=== PATIENT | male | born 1990 | race Caucasian/White ===

== ENCOUNTER 2021-03-18 17:09 | Emergency (ER) | payer OTHER, SELFPAY ==
[2021-03-18 17:25] VITALS: BP 142/80; PULSE 80; RESP 18; TEMP 36.3; O2SAT 98
--- NOTE | 2021-03-18 18:07 | ED.DIZZY ---
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 Patient denies any problems with sinus drainage, sinus pressure, headaches, visual disturbances or any chest pain, pressure or any palpitations. Patient denies feeling like he is going to pass out, states that he has no dizziness with changes of position or any dizziness if he moves his head quickly. Patient states that he walks a lot at work denies any exercise program outside of work. Patient states that he drinks a lot of water daily so does not feel it could be related to dehydration. MD elicited complaint: dizziness and lightheadedness Related Data Home Medications Medication Instructions Recorded Confirmed No Home Medications 03/18/21 03/18/21 Allergies Allergy/AdvReac Type Severity Reaction Status Date / Time No Known Allergies Allergy Unknown Unverified 03/18/21 17:24 Review of Systems Review of Systems: Narrative: CONSTITUTIONAL: Denies fever, chills, or sweats. EYES: Denies visual changes, redness, or discharge.no visual changes or headache pain ENT: Denies rhinorrhea, congestion, sore throat, or otalgia. CARDIOVASCULAR: Denies chest pain, palpitations, or edema, denies feelings of fast or slow heart rate RESPIRATORY: Denies cough or dyspnea. GASTROINTESTINAL: Denies abdominal pain, nausea, vomiting, or diarrhea. GENITOURINARY: Denies dysuria or hematuria. SKIN: Denies rash or itching. MUSCULOSKELETAL: Denies acute back pain, joint pain, or myalgia. NEUROLOGIC: Denies headache, numbness, or weakness.verbalizes intermittent dizziness, feelings of being lightheaded PSYCHIATRIC: Denies anxiety or depression. All systems reviewed & are unremarkable except as noted in HPI and below PMFSH Surgical History Surgical History (Updated 03/18/21 @ 18:09 by Jade Sparks NP) History of spinal surgery Family History Family History (Updated 03/26/21 @ 14:59 by Jade Sparks NP) Other Cerebrovascular accident Elevated cholesterol Heart disease Hypertension Social History Social History (Updated 03/26/21 @ 15:00 by Jade Sparks NP) Smoking status: Never smoker Alcohol intake: current Alcohol use details: social Substance use: never Living arrangements: with family Gender identity (if verbalized by the patient): Male Comments At time of signature, agree with nursing past medical, surgical, social and family history. There is no relevant family history pertinent to the presenting complaint Exam Narrative: Exam Narrative: GENERAL: Well-appearing, well-nourished, and in no acute distress. HEAD: Normocephalic, atraumatic. EYES: PERRLA and EOMI.no nystagmus ENT: Nares clear, no rhinorrhea or epistaxis. Mucous membranes moist.TM's normal with good light reflex, throat pink with no exudates or lesions, denies any pain to throat. NECK: Supple. no lymphadenopathy CHEST: Clear to auscultation. No respiratory distress.SAO2 98% ion room air. HEART: Regular rate and rhythm. No murmur heard. Normal peripheral pulses. ABDOMEN: Soft, nontender, nondistended, normal active bowel sounds. EXTREMITIES: Normal range of motion. No edema. SKIN: Warm, dry, no rash. NEURO: No focal deficits. Alert and oriented x3.gait steady,cranial nerves intact. Course Vital Signs Vital signs: Vital Signs Temperature 36.3 C L 03/18/21 17:25 Pulse Rate 80 03/18/21 17:25 Respiratory Rate 18 03/18/21 17:25 Blood Pressure 142/80 H 03/18/21 17:25 Pulse Oximetry 98 03/18/21 17:25 Temperature 36.3 C L
[2021-03-18 18:14] VITALS: BP 131/74; PULSE 79
== END 2021-03-18 18:47 | disposition home or self-care (01) ==
PROVIDERS: Emergency Provider Registered Nurse
DX: R42 Dizziness and giddiness (principal)
CPT/HCPCS: 99213; G0463